=== PATIENT | female | born 1985 | race Caucasian/White ===

== ENCOUNTER 2016-11-27 17:47 | Emergency (ER) | payer BC, OTHER ==
[2016-11-27 19:28] VITALS: BP 107/64
--- NOTE | 2016-11-27 20:31 | UC ---
Back Pain HPI - HPI Summary HPI Summary: 2 weeks of worsening pain lateral to spine on left and right sides of back - History of Current Complaint Chief Complaint: UCBackPain Stated Complaint: BACK PAIN Time Seen by Provider: 11/27/16 20:08 Hx Obtained From: Patient Hx Last Menstrual Period: she does not get because of her cointrol ?: No Onset/Duration: Sudden Onset, Lasting Weeks - 2, Still Present Timing: Constant, Lasting Weeks - 2 Severity Initially: Moderate Severity Currently: Moderate Pain Intensity: 6 Pain Scale Used: 0-10 Numeric Back Pain: Is Discrete @ - lateral to spine bilaterally Character: Aching, Spasmodic, Stiffness Aggravating: Movement Alleviating: Rest Associated Signs And Symptoms: Positive: Negative - Allergies/Home Medications Allergies/Adverse Reactions: Allergies Allergy/AdvReac Type Severity Reaction Status Date / Time No Known Allergies Allergy Verified 11/27/16 19:25 Home Medications: Home Medications Bupropion XL* [Wellbutrin XL *] 150 mg PO DAILY 11/27/16 [History Confirmed ] Loratadine [Claritin 10 MG CAP] 10 mg PO DAILY 11/27/16 [History Confirmed 11/27] PMH/Surg Hx/FS Hx/Imm Hx Previously Healthy: No Cardiovascular History Of: Reports: Cardiac Disorders - PALPATATIONS - Surgical History Surgical History: Yes Surgery Procedure, Year, and Place: GALL BLADDER REMOVAL - Family History Known Family History: Positive: None Family History: no reported cardiovascular issues in family lineage - Social History Alcohol Use: None Substance Use Type: None Smoking Status (MU): Never Smoked Tobacco Review of Systems Constitutional: Negative Skin: Negative Eyes: Negative ENT: Negative Respiratory: Negative Cardiovascular: Negative Gastrointestinal: Negative Genitourinary: Negative Motor: Negative Neurovascular: Negative Musculoskeletal: Myalgia Neurological: Negative Psychological: Negative All Other Systems Reviewed And Are Negative: Yes Physical Exam Triage Information Reviewed: Yes Appearance: Well-Appearing, No Pain Distress, Well-Nourished Vital Signs: Initial Vital Signs Temp 98.8 F 11/27/16 19:22 Pulse 63 11/27/16 19:22 Resp 14 11/27/16 19:22 BP 107/64 11/27/16 19:22 Pulse Ox 100 11/27/16 19:22 Vital Signs Reviewed: Yes Eye Exam: Normal Eyes: Positive: Conjunctiva Clear ENT Exam: Normal ENT: Positive: Normal ENT inspection, Hearing grossly normal, TMs normal. Negative: Nasal congestion, Nasal drainage, Tonsillar swelling, Tonsillar exudate, Trismus, Muffled/hoarse voice Dental Exam: Normal Neck exam: Normal Neck: Positive: Supple, Nontender, No Lymphadenopathy Respiratory Exam: Normal Respiratory: Positive: Chest non-tender, Lungs clear, Normal breath sounds, No respiratory distress, No accessory muscle use Cardiovascular Exam: Normal Cardiovascular: Positive: RRR, No Murmur, Pulses Normal, Brisk Capillary Refill Musculoskeletal Exam: Normal Musculoskeletal: Positive: Strength Intact, ROM Intact, No Edema Neurological Exam: Normal Neurological: Positive: Alert, Muscle Tone Normal Psychological Exam: Normal Skin Exam: Normal Back Pain Course/Dx - Course Course Of Treatment: ibuprofen, flexeril, back and core strengthing exercise, follow with pcp - Differential Dx/Diagnosis Differential Diagnosis/HQI/PQRI: Strain, Sprain Provider Diagnoses: Muscle spasm--back pain Discharge - Discharge Plan Condition: Stable Disposition: HOME Prescriptions: Cyclobenzaprine TAB* [Flexeril 10 MG TAB*] 10 mg PO TID PRN #15 tab PRN Reason: muscle spasm Ibuprofen TAB* [Motrin TAB* 600 MG] 600 mg PO Q6H PRN #40 tab PRN Reason: Pain Patient Education Materials: Acute Low Back Pain (ED), Lower Back Exercises (ED ), Muscle Spasm (ED) Referrals: Jean Claude CARRION,Florecita Martins [Primary Care Provider] - 5 Days
== END 2016-11-27 20:37 | disposition home or self-care (01) ==
LOC: UCCORT 17:47
DX: M54.9 Dorsalgia, unspecified (principal); M62.830 Muscle spasm of back; Z90.49 Acquired absence of other specified parts of digestive tract
CPT/HCPCS: 99212; G0463

== ENCOUNTER 2016-12-17 18:24 | Emergency (ER) | payer OTHER ==
[2016-12-17 19:27] VITALS: BP 107/63
[2016-12-17] MEDS ORDERED: Amoxicillin/Clavulanate TAB* 875 MG PO ONE (19:58)
--- NOTE | 2016-12-17 20:02 | UC ---
Respiratory Complaint HPI - HPI Summary HPI Summary: Patient has had increased SOB, cough, sinus congestion and pressure over the past 8 days. - History of Current Complaint Chief Complaint: UCGeneralIllness Stated Complaint: SINUS CONGESTION HEADACHE COUGH Time Seen by Provider: 12/17/16 19:49 Hx Obtained From: Patient Hx Last Menstrual Period: doesn't get on OCP ?: No Onset/Duration: Sudden Onset, Lasting Weeks Timing: Constant Severity Initially: Mild Severity Currently: Moderate Character: Cough: Nonproductive Aggravating Factors: Exertion, Deep Breaths, Recumbent Position Alleviating Factors: Nothing Associated Signs And Symptoms: Positive: Wheezing, URI, Nasal Congestion, Hoarseness, Sinus Discomfort - Risk Factors Pulmonary Embolism Risk Factors: Negative Cardiac Risk Factors: Negative Pseudomonas Risk Factors: Negative Tuberculosis Risk Factors: Negative - Allergies/Home Medications Allergies/Adverse Reactions: Allergies Allergy/AdvReac Type Severity Reaction Status Date / Time No Known Allergies Allergy Verified 12/17/16 19:21 Home Medications: Home Medications ValACYclovir (*) [Valtrex 1 GM(*)] 1 gm PO BID 12/17/16 [History Confirmed 12/17] PMH/Surg Hx/FS Hx/Imm Hx Previously Healthy: Yes - Surgical History Surgical History: Yes Surgery Procedure, Year, and Place: GALL BLADDER REMOVAL - Family History Known Family History: Positive: None Family History: no reported cardiovascular issues in family lineage - Social History Alcohol Use: None Substance Use Type: None Smoking Status (MU): Never Smoked Tobacco Review of Systems Constitutional: Fever Skin: Negative Eyes: Negative ENT: Sore Throat, Ear Ache, Nasal Discharge Respiratory: Cough Cardiovascular: Negative Gastrointestinal: Negative Genitourinary: Negative Motor: Negative Musculoskeletal: Negative Neurological: Headache Psychological: Negative All Other Systems Reviewed And Are Negative: Yes Physical Exam Triage Information Reviewed: Yes Appearance: Well-Nourished, Ill-Appearing, Pain Distress Vital Signs: Initial Vital Signs Temp 98.8 F 12/17/16 19:23 Pulse 85 12/17/16 19:23 Resp 16 12/17/16 19:23 BP 107/63 12/17/16 19:23 Pulse Ox 100 12/17/16 19:23 Vital Signs Reviewed: Yes Eye Exam: Normal Eyes: Positive: Conjunctiva Clear ENT Exam: Normal ENT: Positive: Hearing grossly normal, Pharyngeal erythema, TMs normal, Tonsillar swelling Dental Exam: Normal Neck exam: Normal Neck: Positive: Supple, Nontender, No Lymphadenopathy Respiratory Exam: Normal Respiratory: Positive: Chest non-tender, No respiratory distress, No accessory muscle use, Wheezing, Inspiration Cardiovascular Exam: Normal Cardiovascular: Positive: RRR, No Murmur, Pulses Normal Abdominal Exam: Normal Abdomen Description: Positive: Nontender, No Organomegaly, Soft Bowel Sounds: Positive: Present Musculoskeletal Exam: Normal Musculoskeletal: Positive: Strength Intact, ROM Intact, No Edema Neurological Exam: Normal Neurological: Positive: Alert, Muscle Tone Normal Psychological Exam: Normal Skin Exam: Normal UC Diagnostic Evaluation - Laboratory O2 Sat by Pulse Oximetry: 100 Respiratory Course/Dx - Course Course Of Treatment: hx obtained, exam performed, meds reviewed, treated for sinusitis - Differential Dx/Diagnosis Differential Diagnosis/HQI/PQRI: Asthma, Bronchitis, CHF, Influenza, Laryngitis , Sinusitis Provider Diagnoses: sinusitis. bronchospasm Discharge - Discharge Plan Condition: Stable Disposition: HOME Patient Education Materials: Sinusitis (ED) Additional Instructions: 1. take the medication as prescribed. 2. increase fluid intake and get plenty of rest.
== END 2016-12-17 20:15 | disposition home or self-care (01) ==
LOC: UCCORT 18:24
DX: J32.9 Chronic sinusitis, unspecified (principal); J98.01 Acute bronchospasm
CPT/HCPCS: 99212; A9270-GY; G0463

== ENCOUNTER 2017-08-24 15:59 | Emergency (ER) | payer OTHER ==
--- OUTSIDE RECORDS SUMMARY | 2017-08-24 16:13 | XMS REPORT ---
:1985 External Reference #:[id number] Demographics Address [address] [place] [address] Home Phone [phone] Mobile Phone [phone] Work Phone [phone] Preferred Language Paraguayan Marital Status Not Or Scientologist Affiliation Unknown Race White Ethnic Group Not Or Author Organization [facility] Address [address] [place] [id number] Phone [phone] Care Team Providers Name Role Phone Florecita Silverio MD Primary Care Physician Unavailable Payers Type Date Identification Numbers Payment Provider Subscriber Commercial Effective: Policy Number: [employer] Of MELODY Hernandez 2013 [id number] Expires: 2015 PayID: [id number] [address] [address] [place] [address] Commercial Expires: 2016 Policy Number: [id number] [employer] Of MELODY Hernandez PayID: [id number] [address] [address] [place] [address] Medigap Part B Effective: Policy Number: [facility] Charlette Hernandez 2016 [id number] PayID: [id number] [address] [address] [place] [address] Problems Date Description Provider Status Onset: 02/25/2017 Vaginitis and vulvovaginitis Solange Luke RPA-Dinorah, MHP Active Onset: 03/31/2016 Primary dysmenorrhea Solange Luke RPA-C, MHP Active Onset: 09/05/2013 Increased frequency of urination Solange Luke RPA-C, MHP Active Onset: 06/25/2011 Leukorrhea Solange Luke RPA-C, MHP Active Onset: 06/25/2011 Dysuria Solagne Luke RPA-C, MHP Active Family History Date Family Member(s) Problem(s) Comments Father Healthy Father Hypercholesterolemia Father Obesity Mother Healthy Paternal Grandfather [place] Paternal Grandmother due to Cancer, Breast () - dx in 70's Paternal Grandmother due to Cancer, Lung () Maternal Grandfather due to Cancer () - Luekemia Maternal Grandfather Diabetes Maternal Grandmother due to Cancer () Maternal Grandmother Lymphoma Maternal Grandmother Melanoma Paternal Uncles due to Cancer, Lung () Social History Type Date Description Comments Marital Status Single Lives With Alone Diet Healthy, Well Balanced Sleep Reports normal sleep activity Smoke-Free Home is smoke-free Pets 1 dog 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 Cigarette Use Never Smoked Cigarettes ETOH Use Denies alcohol use Recreational Drug Use Denies Drug Use Smoking Patient has never smoked Daily Caffeine Does Not Consume Caffeine Tattoo/Piercing Tattoo none Tattoo/Piercing Pierced ears Seat Belt/Car Seat always uses seat belt Guns in Home No Smoke Alarms Yes Smoke Alarms Carbon Monoxide Detector: Yes Recent Travel There has been recent travel abroad DR Currently Active Patient is currently not sexually active Condom Use Always Contraceptive Methods Past methods include condoms Contraceptive Methods Past methods include depo-provera injection Contraceptive Methods Past methods include ring (Nuva) Contraceptive Methods Past methods include oral contraceptives Contraceptive Methods Current methods include oral contraceptives Age 1st [place] 19 Years Old # 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 Allergies, Adverse Reactions, Alerts Date Description Reaction Status Severity Comments 02/06/2011 NKDA active Medications Medication Date Status Form Strength Qnty SIG Indications Ordering Provider Probiotic 07/29/ Active Capsules 30caps 1 by mouth Joby, 2017 every day MD Goldie otc Claritin 03/31/ Active Capsules 10mg 90caps as needed Joby, 2015 for MD Goldie allergies- otc Super B 02/07/ Active Capsules Joby Complex/Dinorah 2014 MD Goldie Lo Loestrin Fe 02/06/ Active Tablets 1mg-10 mcg 84tabs take 1 N94.5 Joby 2010 / 10 mcg tablet by MD Goldie mouth every day same time of day Multivitamins / Active Capsules Unknown 0000 Wellbutrin / Active Unknown 0000 Doxycycline / Active Capsules 100mg TK 1 C PO Unknown Hyclate 0000 D Ondansetron HCL / Active Tablets 4mg TK 1 To 2 Unknown 0000 TS PO tid PRF Nausea Dapsone / Active Gel 5% Apply Pea Unknown 0000 Size Amount To Face qam Epiduo Forte / Active Gel 0.3-2.5% Apply Pea Unknown 0000 Size Amount To Face QHS Evening 02/07/ Hx Capsules 1300mg Hemphill, Round O Oil 2014 - MD Goldie 2015 Doxycycline 09/19/ Hx Tablets 100mg 1 PO bid Hemphill, Hyclate 2013 - for acne MD Goldie 2014 Flagyl 09/07/ Hx Tablets 500mg 14tabs 1 tab bid Joby, 2013 - times 7 MD Goldie 09/17/ 2013 Vitamin B 02/13/ Hx Capsules Jorge Alberto Roberson 2010 - Rosemary,M 08/05/ 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 Valtrex 02/13/ Hx Tablets 1gm 12tabs 2 tabs Karol 2010 - with first Suzie Riley 06/25/ symptoms 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 then repeat in 12 hours Ponstel 02/06/ Hx Capsules 250mg 2 po Karol 2010 - initially Rosemary,M 08/02/ then 1 tab S 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 2012 po q6- 8 hours prn dysmenorrh ea/menorrh agia Flagyl 02/06/ Hx Tablets 500mg 14tabs 1 tab bid Karol, 2010 - times 7 RosemarySuzie 06/25/ days 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 Vital Signs Date Vital Result Comment 07/29/2017 BP Systolic 110 mmHg BP Diastolic 68 mmHg Weight 166.00 lb Height 66 inches 5'6" BMI (Body Mass Index) 26.8 kg/m2 02/25/2017 BP Systolic 98 mmHg BP Diastolic 68 mmHg Weight 154.00 lb Height 66 inches 5'6" BMI (Body Mass Index) 24.9 kg/m2 03/31/2016 BP Systolic 110 mmHg BP Diastolic 62 mmHg Weight 174.00 lb Height 66 inches 5'6" BMI (Body Mass Index) 28.1 kg/m2 02/07/2015 BP Systolic 100 mmHg BP Diastolic 60 mmHg Weight 168.00 lb Height 66 inches 5'6" BMI (Body Mass Index) 27.1 kg/m2 09/19/2013 BP Systolic 120 mmHg BP Diastolic 78 mmHg Weight 158.00 lb Height 66 inches 5'6" BMI (Body Mass Index) 25.5 kg/m2 09/05/2013 BP Systolic 102 mmHg BP Diastolic 60 mmHg Weight 158.00 lb Height 66 inches 5'6" BMI (Body Mass Index) 25.5 kg/m2 08/02/2012 BP Systolic 106 mmHg BP Diastolic 64 mmHg Weight 159.00 lb Height 66 inches 5'6" BMI (Body Mass Index) 25.7 kg/m2 06/25/2011 BP Systolic 108 mmHg BP Diastolic 64 mmHg Weight 158.00 lb Respiratory Rate 14 /min 02/06/2011 BP Systolic 116 mmHg BP Diastolic 60 mmHg Weight 156.00 lb Height 66 inches 5'6" BMI (Body Mass Index) 25.2 kg/m2 Results Test Date Test Result H/L Range Note Laboratory test finding 02/25/2017 Urine Culture SPECIMEN DESCRI> 1 Vaginitis Direct Test SPECIMEN DESCRI> 2 Laboratory test 03/31/2016 Cytology Pap See Note 3 finding Laboratory test 09/19/2013 Urine Culture SPECIMEN DESCRIP 4 finding <SEE NOTE> HSV1/HSV2 Glyco G Igg 09/05/2013 HSV1 Glyco G Igg @ POSITIVE (Neg) 5, 6 HSV2 Glyco G Igg @ NEGATIVE (Neg) 5, 7 HSV 1/2 Igg/Igm W/RFX /2 09/05/2013 HSV1/2 Igg AB @ 3.64 INDEX High (0.00 -0.79) 5, 8 Glyco GSP Igg HSV1/2 Igm AB @ 1.29 INDEX High (0.00-0.89) 5, 9 STD Panel (Leonardo) 09/05/2013 Hepatitis B S Ag @ NEGATIVE (Neg) 5 Treponema Igg/Igm @ NEGATIVE (Neg) 5 HIV 1/2 AB @ NEGATIVE (Neg) 5, 10 Hepatitis C AB @ NEGATIVE (Neg) 5, 11 Laboratory test finding 09/05/2013 Urine Culture SPECIMEN DESCRIP 5, 12 <SEE NOTE> CT/GC Amplified 09/05/2013 C. Trachomatis NEGATIVE (Neg) 5, 13 N. Gonorrhoeae NEGATIVE (Neg) 5, 14 STD Panel In House Add On's 09/05/2013 HCG Negative mIU/ml Negative Affirm - In House 09/05/2013 Eloise Negative Negative Gardnarella Positive High Negative Trichmonas Negative Negative Laboratory test finding 08/02/2012 Cytology Pap See Note 15 Affirm - In House 06/25/2011 Eloise negative Gardnerella negative Trichomonas negative Laboratory test finding 06/25/2011 Urine Culture SPECIMEN DESCRIP 16 <SEE NOTE> STD Panel In House Add 02/06/2011 Beta HCG < 0.50 mIU/mL <5.00 17 On's Affirm - In House 02/06/2011 Eloise NEGATIVE Gardnerella POSITIVE High Trichomonas NEGATIVE STD Panel 02/06/2011 HIV 1/2 AB @ NEGATIVE (Neg) 18 Hepatitis B S Ag @ NEGATIVE (Neg) Hepatitis C AB @ NEGATIVE (Neg) 19 Treponema Igg/Igm @ NEGATIVE (Neg) HSV 1/2 Igg/Igm W/RFX 1/2 02/06/2011 HSV1/2 Igg AB @ 3.66 INDEX High (0.00 -0.89) 20 Glyco GSP Igg HSV1/2 Igm AB @ 0.53 INDEX (0.00-0.89) 21 CT/GC Amplified 02/06/2011 C. Trachomatis NEGATIVE (Neg) 22 N. Gonorrhoeae NEGATIVE (Neg) 23 HSV1/HSV2 Glyco G Igg 02/06/2011 HSV1 Glyco G Igg @ 5.53 INDEX High (0.00- 0.89) 24 HSV2 Glyco G Igg @ 0.68 INDEX (0.00-0.89) 25 1 SPECIMEN DESCRIPTION MIDSTREAM URINE,CLEAN CATCH CULTURE RESULTS MIXED UROGENITAL HEATHER; PLEASE SUBMIT A NEW SPEC IMEN IF CLINICALLY INDICATED. REPORT STATUS FINAL 02/26/2017 2 SPECIMEN DESCRIPTION VAGINAL/CERVICAL RESULT NEGATIVE FOR TRICHOMONAS VAGINALIS BY DNA PROBE NEGATIVE FOR GARDNERELLA VAGINALIS BY DNA PROBE NEGATIVE FOR ELOISE SPECIES BY DNA PROBE REPORT STATUS FINAL 02/25/2017 3 Interpretation: NEGATIVE FOR INTRAEPITHELIAL LESION OR MALIGNANCY. Specimen Adequacy: SATISFACTORY FOR EVALUATION. Additional Findings: ENDOCERVICAL/TRANSFORMATION ZONE PRESENT. This liquid-based ThinPrep Pap Test was screened with the use of the ThinPrep Imaging System and was reported using Satin System descriptive nomenclature. Cytology Laboratory [address], [address] [place] [address] CYTOLOGY REPORT Name: Charlette Hernandez : 1985 (Age: 31) Sex: F Location: [facility]. # [id number] Date Collected: 2015 Billing #: [id number] Date Received: 04/01/2016 Requisition # [id number] Physician(s): SOLANGE SANTOYO Source of Specimen: VAGINAL/ENDOCERVICAL/ECTOCERVICAL THIN PREP Clinical Information: Date of Last Menstrual Period: 12/2015 Hormonal History: OCPs kf Electronic Signature FILIPE Condon (ASCP) Reported: 04/04/2016 [facility] [employer] Laboratory [facility] Dx Code(s): Z12.4 4 SPECIMEN DESCRIPTION MIDSTREAM URINE,CLEAN CATCH CULTURE RESULTS <10,000 CFU/ML REPRESENTING URETHRAL HEATHER REPORT STATUS FINAL 09/21/2013 5 Pt has F/U on 09/19, will submit new urine specimen at that time. 6 PLEASE NOTE: Individuals infected with HSV may not exhibit detectable IgG antibody to glycoprotein G in the early stages of infection and 5-10% of infections may occur with glycoprotein G deficient virus. Detection of antibody presence in these cases may only be possible using a non-type specific screening test. NOTE: HSV serology cannot be interpreted in infants less than 60 days old. NEW QUALITATIVE METHOD IN USE 03/16/12 7 PLEASE NOTE: Individuals infected with HSV may not exhibit detectable IgG antibody to glycoprotein G in the early stages of infection and 5-10% of infections may occur with glycoprotein G deficient virus. Detection of antibody presence in these cases may only be possible using a non-type specific screening test. NOTE: HSV serology cannot be interpreted in infants less than 60 days old. NEW QUALITATIVE METHOD IN USE 03/16/12 8 INTERPRETATION OF RESULT < 0.80 NEGATIVE 0.80-0.99 EQUIVOCAL - repeat testing in 10-14 days may be helpful. > 0.99 POSITIVE - may indicate a current or previous HSV infection. NOTE: HSV serology cannot be interpreted in infants less than 60 days old. 9 INTERPRETATION OF RESULT < 0.90 NEGATIVE 0.90-1.09 EQUIVOCAL - repeat testing in 10-14 days may be helpful. > 1.09 POSITIVE - may indicate a current or recent HSV infection. NOTE: HSV serology cannot be interpreted in infants less than 60 days old. 10 THIS INFORMATION HAS BEEN DISCLOSED TO YOU FROM CONFIDENTIAL RECORDS WHICH ARE PROTECTED BY STATE LAW. STATE LAW PROHIBITS YOU FROM MAKING ANY FURTHER DISCLOSURE OF THIS INFORMATION WITHOUT THE SPECIFIC WRITTEN CONSENT OF THE PERSON TO WHOM IT PERTAINS, OR OTHERWISE PERMITTED BY LAW. 11 NOT INFECTED WITH HCV, UNLESS RECENT INFECTION IS SUSPECTED OR OTHER EVIDENCE EXISTS TO INDICATE HCV INFECTION. 12 SPECIMEN DESCRIPTION MIDSTREAM URINE,CLEAN CATCH CULTURE RESULTS MIXED UROGENITAL HEATHER; PLEASE SUBMIT A NEW SPEC IMEN IF CLINICALLY INDICATED. REPORT STATUS FINAL 09/06/2013 13 SOURCE - VAGINAL/CERVICAL BY AMPLIFIED DNA PROBE PERFORMED BY LABORATORY [facility] [address] [facility] [id number] 14 SOURCE - VAGINAL/CERVICAL BY AMPLIFIED DNA PROBE PERFORMED BY LABORATORY [address] [address] Cytology Laboratory [address] [place] [address], [address] [place] [address] CYTOLOGY REPORT Name: Charlette Hernandez : 1985 (Age: 27) Sex: F Location: [facility] # [id number] Date Collected: 2012 Billing #: [id number] Date Received: 08/03/2012 Requisition # [id number] Physician(s): SOLANGE SANTOYO Source of Specimen: ENDOCERVICAL/ECTOCERVICAL THIN PREP Clinical Information: Date of Last Menstrual Period: 07/30/12 Hormonal History: OCPs Specimen Adequacy: SATISFACTORY FOR EVALUATION. ADEQUATE ENDOCERVICAL/TRANSFORMATION ZONE. General Categorization: NEGATIVE FOR INTRAEPITHELIAL LESION OR MALIGNANCY. Descriptive Evaluation: SHIFT IN HEATHER SUGGESTIVE OF BACTERIAL VAGINOSIS. lgs Electronic Signature FILIPE Zavala (ASCP) Reported: 08/04/2012 Cytology [facility] ICD-9 Code(s) V72.31 A: 616.10 16 SPECIMEN DESCRIPTION MIDSTREAM URINE,CLEAN CATCH CULTURE RESULTS NO GROWTH REPORT STATUS FINAL 06/26/2011 17 INTERPRETATION: NEGATIVE 18 THIS INFORMATION HAS BEEN DISCLOSED TO YOU FROM CONFIDENTIAL RECORDS WHICH ARE PROTECTED BY STATE LAW. STATE LAW PROHIBITS YOU FROM MAKING ANY FURTHER DISCLOSURE OF THIS INFORMATION WITHOUT THE SPECIFIC WRITTEN CONSENT OF THE PERSON TO WHOM IT PERTAINS, OR OTHERWISE PERMITTED BY LAW. 19 NOT INFECTED WITH HCV, UNLESS RECENT INFECTION IS SUSPECTED OR OTHER EVIDENCE EXISTS TO INDICATE HCV INFECTION. 20 INTERPRETATION OF RESULT < 0.80 NEGATIVE 0.80-0.99 EQUIVOCAL - repeat testing in 10-14 days may be helpful. > 0.99 POSITIVE - may indicate a current or previous HSV infection. NOTE: HSV serology cannot be interpreted in infants less than 60 days old. 21 INTERPRETATION OF RESULT < 0.90 NEGATIVE 0.90-1.09 EQUIVOCAL - repeat testing in 10-14 days may be helpful. > 1.09 POSITIVE - may indicate a current or recent HSV infection. NOTE: HSV serology cannot be interpreted in infants less than 60 days old. 22 SOURCE - VAGINAL/CERVICAL BY AMPLIFIED DNA PROBE PERFORMED AT [address] [facility] [address] 23 SOURCE - VAGINAL/CERVICAL BY AMPLIFIED DNA PROBE PERFORMED AT [address] [facility] [address] 24 INTERPRETATION OF RESULT < 0.90 NEGATIVE 0.90-1.10 EQUIVOCAL - repeat testing in 4-12 weeks may be helpful. > 1.10 POSITIVE PLEASE NOTE: Individuals infected with HSV may not exhibit detectable IgG antibody to glycoprotein G in the early stages of infection and 5-10% of infections may occur with glycoprotein G deficient virus. Detection of antibody presence in these cases may only be possible using a non-type specific screening test. NOTE: HSV serology cannot be interpreted in infants less than 60 days old. 25 INTERPRETATION OF RESULT < 0.90 NEGATIVE 0.90-1.10 EQUIVOCAL - repeat testing in 4-12 weeks may be helpful. > 1.10 POSITIVE PLEASE NOTE: Individuals infected with HSV may not exhibit detectable IgG antibody to glycoprotein G in the early stages of infection and 5-10% of infections may occur with glycoprotein G deficient virus. Detection of antibody presence in these cases may only be possible using a non-type specific screening test. NOTE: HSV serology cannot be interpreted in infants less than 60 days old. Procedures Description No Information Encounters Type Date Location Provider CPT E/M Dx Office Visit 02/25/2017 2:15p [place] [facility] Solange Luke RPA-C, 24982 N76.2 MHP N89.8 Office Visit 03/31/2016 3:30p [facility] [facility] Solange Luke RPA-C, 91931 Z01.411 MHP N94.4 Office Visit 02/07/2015 1:30p [facility] Solange Luke RPA-C, 48947 V72.31 MHP V25.41 V25.01 Office Visit 09/19[facility]2013 [facility] RPA-C, 26863 V15.85 MHP 788.41 Office Visit 09/05/2013 11:30a [facility] Luke, SolangeSULEMAN maharaj, [address]187 V72.31 MHP 788.41 V15.85 788.1 V25.41 Office Visit 08/02/2012 3:15p [facility] Luke, SULEMAN Narvaez, [address] V76.2 MHP V72.31 V25.01 625.3 Office Visit 06/25/2011 10:00a [facility] Luke, SolangeSULEMAN maharaj, [address] 788.1 MHP 623.5 Office Visit 02/13/2011 3:15p [facility] Rosemary Roberson,MS DESKIDDING 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 [address]654 V15.85 V65.45 Office Visit 02/06/2011 9:30a [facility] Rosemary Roberson, DESKIDDING 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 [address]3775 V15.85 625.3 Plan of Care 02/25/2017 - Solange Luke RPA-C, MHPN76.2 Acute vulvitisComments:Vaginal Affirm obtained Await results for appropriate RxPt encouraged to let external genitalia be open to air when able. 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
--- OUTSIDE RECORDS SUMMARY | 2017-08-24 16:13 | XMS REPORT ---
:1985 External Reference #:[id number] Demographics Address [address] [place] [address] Home Phone [phone] Mobile Phone [phone] Work Phone [phone] Preferred Language Moldovan Marital Status Not Or Samaritan Affiliation Unknown Race White Ethnic Group Not Or Author Organization [facility] Address [address] [place] [id number] Phone [phone] Care Team Providers Name Role Phone Florecita Silverio MD Primary Care Physician Unavailable Payers Type Date Identification Numbers Payment Provider Subscriber Commercial Effective: Policy Number: BS Of MELODY Hernandez 2013 [id number] Expires: 2015 PayID: [id number] [address] [address] [place] [address] Commercial Expires: 2016 Policy Number: [id number] BS Of MELODY Hernandez PayID: [id number] [address] [address] [place] [address] Medigap Part B Effective: Policy Number: [facility] Charlette Hernandez 2016 [id number] PayID: [id number] [address] [address] [place] [address] Problems Date Description Provider Status Onset: 02/25/2017 Vaginitis and vulvovaginitis Solange Luke RPA-Dinorah, MHP Active Onset: 03/31/2016 Primary dysmenorrhea Solange Luke RPA-C, MHP Active Onset: 09/05/2013 Increased frequency of urination Solange Luke RPA-C, MHP Active Onset: 06/25/2011 Leukorrhea Solange Luke RPA-C, MHP Active Onset: 06/25/2011 Dysuria Solange Luke RPA-C, MHP Active Family History Date Family Member(s) Problem(s) Comments Father Healthy Father Hypercholesterolemia Father Obesity Mother Healthy Paternal Grandfather [place] Paternal Grandmother due to Cancer, Breast () [...] Pets 1 dog 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 Cigarette Use Never Smoked Cigarettes ETOH [...] Current methods include oral contraceptives Age [address] 19 Years Old # Partners in a [...] QHS Evening 02/07/ Hx Capsules 1300mg Hemphill, Adams Oil 2014 - MD Goldie 2015 Doxycycline 09/19/ Hx Tablets 100mg 1 PO bid Hemphill, Hyclate 2013 - for acne MD Goldie 2014 Flagyl 09/07/ Hx Tablets 500mg 14tabs 1 tab bid Joby, 2013 - times 7 MD Goldie 09/17/ 2013 Vitamin B 02/13/ Hx Capsules Jorge Alberto Roberson 2010 - Rosemary,M 08/05/ S SURVEY AND MAPPING TECHNICIAN 2013 Valtrex 02/13/ Hx Tablets 1gm 12tabs 2 tabs Karol 2010 - with first Suzie Riley 06/25/ symptoms S SURVEY AND MAPPING TECHNICIAN 2010 then repeat in 12 hours Ponstel 02/06/ Hx Capsules 250mg 2 po Karol 2010 - initially Rosemary,M 08/02/ then 1 tab S SURVEY AND MAPPING TECHNICIAN 2012 po q6- 8 hours prn dysmenorrh ea/menorrh agia Flagyl 02/06/ Hx Tablets 500mg 14tabs 1 tab bid Karol, 2010 - times 7 RosemarySuzie 06/25/ days S SURVEY AND MAPPING TECHNICIAN 2010 Vital Signs Date Vital Result Comment [...] ThinPrep Imaging System and was reported using [place] System descriptive nomenclature. Cytology Laboratory [address], [address] [place] [address] CYTOLOGY REPORT Name: Charlette Hernandez : 1985 (Age: 31) Sex: F Location: [facility]. # [id number] Date Collected: 2015 Billing #: [id number] Date Received: 04/01/2016 Requisition # [id number] Physician(s): SOLANGE SANTOYO Source of Specimen: VAGINAL/ENDOCERVICAL/ECTOCERVICAL THIN PREP Clinical Information: Date of Last Menstrual Period: 12/2015 Hormonal History: OCPs kf Electronic Signature FILIPE Condon (ASCP) Reported: 04/04/2016 [facility] Dx Code(s): Z12.4 4 SPECIMEN DESCRIPTION MIDSTREAM [...] AMPLIFIED DNA PROBE PERFORMED BY LABORATORY [facility] [address] [facility] [address] 14 SOURCE - VAGINAL/CERVICAL BY AMPLIFIED DNA PROBE PERFORMED BY LABORATORY [address] [address] Cytology Laboratory [address] [place] [address], [address] [place] [address] CYTOLOGY REPORT Name: Charlette Hernandez : 1985 (Age: 27) Sex: F Location: [facility] # [id number] Date Collected: 2012 Billing #: [id number] Date Received: 08/03/2012 Requisition # [id number] Physician(s): SOLANGE SANTOYO Source of Specimen: ENDOCERVICAL/ECTOCERVICAL THIN PREP Clinical Information: Date of Last Menstrual Period: 07/30/12 Hormonal History: OCPs Specimen Adequacy: SATISFACTORY FOR EVALUATION. ADEQUATE ENDOCERVICAL/TRANSFORMATION ZONE. General Categorization: NEGATIVE FOR INTRAEPITHELIAL LESION OR MALIGNANCY. Descriptive Evaluation: SHIFT IN HEATHER SUGGESTIVE OF BACTERIAL VAGINOSIS. lgs Electronic Signature FILIPE Zavala (ASCP) Reported: 08/04/2012 Cytology [facility] ICD-9 Code(s) V72.31 A: 616.10 16 SPECIMEN [...] BY AMPLIFIED DNA PROBE PERFORMED AT [address] [facility] [address] 23 SOURCE - VAGINAL/CERVICAL BY AMPLIFIED DNA PROBE PERFORMED AT [address] [facility] [address] 24 INTERPRETATION OF RESULT < 0.90 NEGATIVE [...] Location Provider CPT E/M Dx Office Visit 07/29/2017 2:15p [facility] Solange Luke, 875[address] Z01.419 RPA-C, P Z30.41 Office Visit 02/25/2017 2:15p [place] [facility] Solange Luke RPA-C, [address]7425 N76.2 P N89.8 Office Visit 03/31/2016 3:30p [place] [facility] Solange Luke RPA-C, [address]386 Z01.411 P N94.4 Office Visit 02/07/2015 1:30p [facility] Solange Luke RPA-C, 65463 V72.31 MHP V25.41 V25.01 Office Visit 09/19/2013 10:30a [facility] Solange Luke RPA-C, 78272 V15.85 MHP 788.41 Office Visit 09/05/2013 11:30a [facility] Solange Luke RPA-C, 21099 V72.31 MHP 788.41 V15.85 788.1 V25.41 Office Visit 08/02/2012 3:15p [facility] Solange Luke RPA-C, 04206 V76.2 MHP V72.31 V25.01 625.3 Office Visit 06/25/2011 10:00a [facility] Solange Luke RPA-C, 60635 788.1 MHP 623.5 Office Visit 02/13/2011 3:15p [facility] Rosemary Roberson,MS SURVEY AND MAPPING TECHNICIAN [address]6726 V15.85 V65.45 Office Visit 02/06/2011 9:30a [facility] Rosemary Roberson,MS SURVEY AND MAPPING TECHNICIAN 41374 V15.85 625.3 Plan of Care 07/29/2017 - Solange Luke RPA-C, MHPZ01.419 Encntr for operations administrative assistant exam (general) ( routine) w/o abn findingsComments:Monthly SBE reviewed and encouragedSafe sex practices, condom use reviewed.Pap deferred per guidelines.Follow up:1 year. for annual gynecological exam.Z30.41 Encounter for surveillance of contraceptive pillsComments:Loloestrin refilled x 12
[2017-08-24 19:00] VITALS: BP 111/76
--- NOTE | 2017-08-24 19:13 | UC ---
Throat Pain/Nasal Lorne HPI - HPI Summary HPI Summary: Pt presents to UC reporting 3 days of fever, chills, headache and neck pain. Pt states neck seems more stiff and has developed rash on left side of neck. Pt states she feels swollen behind her left ear and neck. mild nausea, no vomiting. Pt states took Motrin 2 days ago and ASA yesterday. no meds today, no cp, sob, abd pain no n/v + fevers + sick contacts - History of Current Complaint Chief Complaint: UCRespiratory Stated Complaint: NECK PAIN HEADACHE FEVER CHILLS Time Seen by Provider: 08/24/17 19:12 Hx Obtained From: Patient Hx Last Menstrual Period: unknown ?: No Onset/Duration: Gradual Onset Pain Intensity: 5 - Allergies/Home Medications Allergies/Adverse Reactions: Allergies Allergy/AdvReac Type Severity Reaction Status Date / Time No Known Allergies Allergy Verified 08/24/17 18:45 Home Medications: Home Medications Aspirin TAB* [Aspirin 325 MG TAB*] 650 mg PO BID PRN 08/24/17 [History Confirmed 08/24/17] DOXYcycline CAP(*) [DOXYcycline 100MG CAP(*)] 100 mg PO DAILY 08/24/17 [History Confirmed 08/24/17] Dapsone [Dapsone] 5 % EX DAILY 08/24/17 [History Confirmed 08/24/17] Epidou Topical For Acne 1 applic TOPICAL DAILY 08/24/17 [History Confirmed 08/24] Ibuprofen TAB* [Motrin TAB* 600 MG] 600 mg PO Q6H PRN 08/24/17 [History Confirmed 08/24/17] PMH/Surg Hx/FS Hx/Imm Hx Previously Healthy: Yes - Surgical History Surgical History: Yes Surgery Procedure, Year, and Place: GALL BLADDER REMOVAL; tonsils as child; rhinoplasty 2010 - Family History Known Family History: Positive: None Family History: no reported cardiovascular issues in family lineage - Social History Occupation: Employed Full-time Lives: Alone Alcohol Use: None Substance Use Type: None Smoking Status (MU): Never Smoked Tobacco Review of Systems Constitutional: Fever Skin: Rash ENT: Sinus Congestion All Other Systems Reviewed And Are Negative: Yes Physical Exam Triage Information Reviewed: Yes Appearance: Well-Nourished, Ill-Appearing Vital Signs: Initial Vital Signs Temp 100 F 08/24/17 18:51 Pulse 79 08/24/17 18:51 Resp 18 08/24/17 18:51 BP 111/76 08/24/17 18:51 Pulse Ox 100 08/24/17 18:51 Vital Signs Reviewed: Yes Eye Exam: Normal Eyes: Positive: Conjunctiva Clear ENT: Positive: Other - TM x 2 clear turbinates boggy + PND No erythema, no exudate mmmoist Dental Exam: Normal Neck: Positive: Tenderness @, Other: - + left submandibular mild LE Pt with discomfort lateral rotation of neck mild discomfort flex/ext Respiratory Exam: Normal Respiratory: Positive: Chest non-tender, Lungs clear, Normal breath sounds Cardiovascular Exam: Normal Cardiovascular: Positive: RRR, No Murmur, Pulses Normal Abdominal Exam: Normal Abdomen Description: Positive: Nontender, Soft Musculoskeletal: Positive: Strength Intact Neurological Exam: Normal Neurological: Positive: Alert Psychological Exam: Normal Psychological: Positive: Normal Response To Family Skin: Positive: Other - pt with patchy vesicular lesions scalp posterior left ear, left hair and one lesion on left ear lobe Throat Pain/Nasal Course/Dx - Course Course Of Treatment: Pt with fever, myalgia, disocmfort left lateral neck with disocomfort with movement Pt with new vesicular lesion on left side of head. I had long discussion with pt, father present in room, mother, RN on phone. suspicion rash = shingles. flu neg. pt reports stiffness in neck with ROM. Recommend pt to ED for futher eval - likely labs IV, and posisble further eval for meningitis. Pt in agreement with plan. [facility]. father to drive. APAP given in at - Differential Dx/Diagnosis Provider Diagnoses: fever, rash, neck pain Discharge - Discharge Plan Condition: Stable Disposition: HOME Patient Education Materials: Fever in Adults (ED), Acute Headache (ED) Referrals: Jean Claude CARRION,Florecita Martins [Primary Care Provider] - Additional Instructions: The doctor that evaluated you today in concerned regarding your headache, neck stiffness and rash. It is recommended you go directly to the emergency department at [facility] for additional testing and treatment. Please identify yourself when you get to the emergency department
[2017-08-24] MEDS ORDERED: Acetaminophen TAB* 325 MG PO ONE (19:21)
== END 2017-08-24 20:02 | disposition home or self-care (01) ==
LOC: UCCORT 15:59
DX: R50.9 Fever, unspecified (principal); R21 Rash and other nonspecific skin eruption; M54.2 Cervicalgia
CPT/HCPCS: 87502; 99212; A9270-GY; G0463

== ENCOUNTER 2017-08-24 20:59 | Emergency (ER) | payer OTHER ==
[2017-08-24] MEDS ORDERED: Ketorolac INJ* 30 MG/ML 1 ML VIAL IV PUSH ONE (22:35)
[2017-08-24] MEDS ORDERED: diPHENhydraMINE IV* 50 MG/ML 1 ml VIAL (BENADRYL) IV ONE (22:35)
[2017-08-24] MEDS ORDERED: Metoclopramide IV* 5 MG/ML 2 ML VIAL IV SLOW PU ONE (22:35)
[2017-08-24] MEDS ORDERED: NS 0.9% 1000 ML* 1,000 ML IV ONE (22:36)
[2017-08-24 23:18] LABS: ABS Basophils 0.1 10^3/ul (0-0.2); ABS Eosinophils 0.3 10^3/ul (0-0.6); ABS Lymphocytes 2.8 10^3/ul (1.0-4.8); ABS Monocytes 0.7 10^3/ul (0-0.8); ABS Neutrophils 5.1 10^3/ul (1.5-7.7); ABS Nucleated RBC 0 10^3/ul; Eosinophil % 3.1 % (0-6); Hematocrit 37 % (35-47); Hemoglobin 12.7 g/dl (12.0-16.0); Lymphocyte % 31.1 % (25-47); Mean Corpuscular HGB Conc 34 g/dl (31-36); Mean Corpuscular Hemoglobin 30 pg (27-31); Mean Corpuscular Volume 86 fL (80-97); Mean Platelet Volume 7 um3 (7.4-10.4); Nucleated Red Blood Cells % 0; Platelet Count 306 10^3/ul (150-450); Red Blood Count 4.27 10^6/ul (4.0-5.4); Red Cell Distribution Width 14 % (10.5-15)
[2017-08-25] MEDS ORDERED: ValACYclovir (*) 1 GM TAB PO ONE (01:00)
[2017-08-25] MEDS ORDERED: Ondansetron INJ* 2 MG/ML VIAL IV ONE (01:07)
--- NOTE | 2017-08-25 01:15 | ED ---
Ileana Moss Thomas, scribed for Eusebio Harrison MD on 08/24/17 at 2325 . Headache - HPI Summary HPI Summary: The patient is a 32 year old female referred from urgent care with a headache, fever, body aches, and a rash for the last three days. - History Of Current Complaint Chief Complaint: EDHeadache Stated Complaint: HEADACHE/FEVER/RASH Time Seen by Provider: 08/24/17 22:23 Hx Obtained From: Patient Hx Last Menstrual Period: unknown Onset/Duration: Started days ago - 3, Still Present Currently Pain Is: Moderate Timing: Constant Character: Unable To Describe Location of Headache: Diffuse Aggravating Factor: Nothing Allevating Factors: Nothing Associated Signs And Symptoms: Fever, Other (Noted In Comments) - Body aches, rash - Allergies/Home Medications Allergies/Adverse Reactions: Allergies Allergy/AdvReac Type Severity Reaction Status Date / Time No Known Allergies Allergy Verified 08/24/17 18:45 PMH/Surg Hx/FS Hx/Imm Hx Respiratory History: Reports: Hx Asthma - exercise induced Sensory History: Denies: Hx Legally Blind EENT History: Reports: Hx Deafness - Surgical History Surgery Procedure, Year, and Place: GALL BLADDER REMOVAL; tonsils as child; rhinoplasty 2010 Infectious Disease History: No Infectious Disease History: Denies: Hx Clostridium Difficile, Hx Hepatitis, Hx Human Immunodeficiency Virus (HIV), Hx of Known/Suspected MRSA, Hx Shingles, Hx Tuberculosis, Hx Known/ Suspected VRE, Hx Known/Suspected VRSA, History Other Infectious Disease, Traveled Outside the [place] in Last 30 Days - Family History Known Family History: Negative: Cardiac Disease - Social History Alcohol Use: None Substance Use Type: Reports: None Smoking Status (MU): Never Smoked Tobacco Review of Systems Positive: Fever Positive: Myalgia Positive: Rash Positive: Headache All Other Systems Reviewed And Are Negative: Yes Physical Exam - Summary Physical Exam Summary: VITAL SIGNS: Reviewed. GENERAL: Patient is a well-developed and nourished MALE who is lying comfortable in the stretcher. Patient is not in any acute respiratory distress. HEAD AND FACE: No signs of trauma. No ecchymosis, hematomas or skull depressions. No sinus tenderness. EYES: PERRLA, EOMI x 2, No injected conjunctiva, no nystagmus. EARS: Hearing grossly intact. Ear canals and tympanic membranes are within normal limits. MOUTH: Oropharynx within normal limits. NECK: Supple, trachea is midline, no adenopathy, no JVD, no carotid bruit, no c- spine tenderness, neck with full ROM. There is some maculovesicular rash on the left side of the neck. CHEST: Symmetric, no tenderness at palpation LUNGS: Clear to auscultation bilaterally. No wheezing or crackles. CVS: Regular rate and rhythm, S1 and S2 present, no murmurs or gallops appreciated. ABDOMEN: Soft, non-tender. No signs of distention. No rebound no guarding, and no masses palpated. Bowel sounds are normal. EXTREMITIES: FROM in all major joints, no edema, no cyanosis or clubbing. NEURO: Alert and oriented x 3. No acute neurological deficits. Speech is normal and follows commands. SKIN: There is some maculovesicular rash on the left side of the neck. Triage Information Reviewed: Yes Vital Signs On Initial Exam: Initial Vitals Temp Pulse Resp BP Pulse Ox 97.5 F 64 16 106/62 98 08/24/17 21:02 08/24/17 21:02 08/24/17 21:02 08/24/17 21:02 08/24/17 21:02 Vital Signs Reviewed: Yes Diagnostics - Vital Signs Vital Signs Temp Pulse Resp BP Pulse Ox 08/24/17 21:02 97.5 F 64 16 106/62 98 - Laboratory Lab Results: Lab Results 08/24/17 Range/Units 23:00 WBC 9.0 (3.5-10.8) 10^3/ul RBC 4.27 (4.0-5.4) 10^6/ul Hgb 12.7 (12.0-16.0) g/dl Hct 37 (35-47) % MCV 86 (80-97) fL MCH 30 (27-31) pg MCHC 34 (31-36) g/dl RDW 14 (10.5-15) % Plt Count 306 (150-450) 10^3/ul MPV 7 L (7.4-10.4) um3 Neut % (Auto) 57.1 (38-83) % Lymph % (Auto) 31.1 (25-47) % [place] % (Auto) 8.0 (1-9) % Eos % (Auto) 3.1 (0-6) % Baso % (Auto) 0.7 (0-2) % Absolute Neuts (auto) 5.1 (1.5-7.7) 10^3/ul Absolute Lymphs (auto) 2.8 (1.0-4.8) 10^3/ul Absolute Monos (auto) 0.7 (0-0.8) 10^3/ul Absolute Eos (auto) 0.3 (0-0.6) 10^3/ul Absolute Basos (auto) 0.1 (0-0.2) 10^3/ul Absolute Nucleated RBC 0 10^3/ul Nucleated RBC % 0 Result Diagrams: 08/24/17 23:00 08/24/17 23:00 Lab Statement: Any lab studies that have been ordered have been reviewed, and results considered in the medical decision making process. Re-Evaluation - Re-Evaluation First Eval Re-Evaluation Time: 00:40 Change: Improved Comment: The patient feels better. The rash on the left side of her neck does have a vesicular component, which may be shingles. I will treat her for shingles. Headache Course/Dx - Course Assessment/Plan: The patient is a 32 year old female referred from urgent care with a headache, fever, body aches, and a rash for the last three days. There is some maculovesicular rash on the left side of the neck. The patient was given Benadryl, Toradol, [place], and IV fluids. Bloodwork and urinalysis was obtained. On re-evaluation at 00:40, the patient feels better. The rash on the left side of her neck does have a vesicular component, which may be shingles. I will treat her for shingles. She will be discharged home with primary care follow up. - Diagnoses Provider Diagnoses: Shingles Discharge - Discharge Plan Condition: Stable Disposition: HOME Patient Education Materials: Shingles (ED) Referrals: Jean Claude CARRION,Florecita Martins [Primary Care Provider] - 3 Days Additional Instructions: Follow up with your primary care physician in three days. Return to the emergency department for any new or worsening symptoms. The documentation as recorded by the Ileana long Thomas accurately reflects the service I personally performed and the decisions made by me, Eusebio Harrison MD.
[2017-08-25 01:27] VITALS: BP 98/58
== END 2017-08-25 01:27 | disposition home or self-care (01) ==
LOC: ED 20:59
DX: B02.9 Zoster without complications (principal); J45.909 Unspecified asthma, uncomplicated
CPT/HCPCS: 36415; 80053; 83605; 84702; 85025; 86140; 87040; 96360; 96374; 96375; 99283; A9270-GY; J1200; J1885; J2405; J2765

== ENCOUNTER 2018-03-29 20:40 | Emergency (ER) | payer BC, OTHER ==
[2018-03-29 21:12] VITALS: BP 106/68
--- NOTE | 2018-03-29 21:40 | UC ---
Ear Complaint HPI - HPI Summary HPI Summary: Left ear has felt clogged for over a week. Over the past 3 days has developed some discomfort. No fever or other URI symptoms. No loss of hearing or drainage from the ear. - History of Current Complaint Chief Complaint: UCEar Stated Complaint: LEFT EAR CONCERN Time Seen by Provider: 03/29/18 21:25 Hx Obtained From: Patient Hx Last Menstrual Period: unknown Onset/Duration: Gradual Onset, Lasting Days, Still Present Severity Initially: Moderate Severity Currently: Moderate Pain Intensity: 4 Pain Scale Used: 0-10 Numeric Aggravating Factors: Nothing Alleviating Factors: Nothing Associated Signs/Symptoms: Negative: Discharge, Hearing Loss, Foreign Body Sensation, Trauma to Ear, Swelling @, URI Symptoms - Allergies/Home Medications Allergies/Adverse Reactions: Allergies Allergy/AdvReac Type Severity Reaction Status Date / Time No Known Allergies Allergy Verified 03/29/18 21:12 Home Medications: Home Medications ARIPiprazole TAB* [Abilify TAB*] 6 mg PO DAILY 03/29/18 [History Confirmed ] Cholecalciferol TAB* [Vitamin D TAB*] 1,000 unit PO DAILY 03/29/18 [History Confirmed 03/29/18] PMH/Surg Hx/FS Hx/Imm Hx Respiratory History: Asthma Psychological History: Depression - Surgical History Surgical History: Yes Surgery Procedure, Year, and Place: GALL BLADDER REMOVAL; tonsils as child; rhinoplasty 2010 - Family History Known Family History: Positive: None Negative: Cardiac Disease Family History: no reported cardiovascular issues in family lineage - Social History Alcohol Use: None Substance Use Type: None Smoking Status (MU): Never Smoked Tobacco Review of Systems Constitutional: Negative ENT: Ear Ache Respiratory: Negative Cardiovascular: Negative Gastrointestinal: Negative Neurological: Negative All Other Systems Reviewed And Are Negative: Yes Physical Exam Triage Information Reviewed: Yes Appearance: Well-Appearing, No Pain Distress, Well-Nourished Vital Signs: Initial Vital Signs Temp 98.3 F 03/29/18 21:06 Pulse 76 03/29/18 21:06 Resp 16 03/29/18 21:06 BP 106/68 03/29/18 21:06 Pulse Ox 100 03/29/18 21:06 Vital Signs Reviewed: Yes Eyes: Positive: Conjunctiva Clear ENT: Positive: Hearing grossly normal, Pharynx normal, TMs normal Neck: Positive: Supple, Nontender, No Lymphadenopathy Respiratory Exam: Normal Cardiovascular Exam: Normal Abdomen Description: Positive: Soft Musculoskeletal: Positive: No Edema Neurological: Positive: Alert Psychological: Positive: Age Appropriate Behavior Skin: Negative: rashes Ear Complaint Course/Dx - Differential Dx/Diagnosis Provider Diagnoses: RIGHT EAR PAIN Discharge - Sign-Out/Discharge Documenting (check all that apply): Patient Departure All imaging exams completed and their final reports reviewed: No Studies - Discharge Plan Condition: Stable Disposition: HOME Patient Education Materials: Earache (ED) Referrals: Jean Claude CARRION,Florecita Martins [Primary Care Provider] - If Needed Additional Instructions: NO SIGN OF INFECTION OR ABNORMALITY ON EXAM TODAY. TAKE OTC IBUPROFEN FOR DISCOMFORT. FOLLOW-UP WITH ENT FOR FURTHER EVALUATION. EAR PAIN, NON-SPECIFIC There are many causes of ear pain in adults. Pain that's felt in the ear can actually be coming from somewhere nearby. This is called "referred pain." Problems in the teeth, throat, or jaw joint (TMJ) often cause ear pain. Sometimes the physical exam or medical history suggests a treatable cause. If not, we may wait for the pain to go away. New symptoms may offer a clue to the cause of the pain. Report any changes to your care provider. These are some conditions that can cause ear pain, but may not be obvious from physical examination: Eardrum injury Pressure changes (barotrauma) due to swimming or shock waves Mild trauma such as Q-tip injury or finger-picking the outer ear Mild outer ear infection (swimmer's ear) Low-grade or chronic middle ear infection Mastoiditis (infection in the bone behind the ear) TMJ syndrome or arthritis of the jaw Pressure from hard earwax Tooth infection Infected tonsil Sinus infection Nerve disease such as Stoddard's Palsy Follow your care provider's treatment recommendations. Let the ear rest. Don't insert cotton swabs, dig at the ear with your finger, or force your ears to "pop." If you're not improving after a few days, or if new symptoms arise, see the doctor. Watch for: Decreased hearing Spreading pain or headache Drainage or bleeding from the ear Fever Weakness of the face muscles Other new symptoms [facility] SANDRA MARTIN AND [facility] [address] [facility] [phone] [facility] [place] DRS. FLORES AND MARINA [phone] [facility] [place] ([facility] OFFICE HOURS ON TUESDAYS) DR. HEATHER THOMAS Address: [address] [place] [address] (Tuesdays) Phone [place]: Phone [place]: - Billing Disposition and Condition Condition: STABLE Disposition: Home
== END 2018-03-29 21:50 | disposition home or self-care (01) ==
LOC: UCCORT 20:40
DX: H92.01 Otalgia, right ear (principal); J45.909 Unspecified asthma, uncomplicated; F32.9 Major depressive disorder, single episode, unspecified; Z79.899 Other long term (current) drug therapy
CPT/HCPCS: 99211; G0463

== ENCOUNTER 2018-11-14 08:46 | Emergency (ER) | payer BC, OTHER ==
[2018-11-14 09:08] VITALS: BP 93/62
[2018-11-14 09:30] LABS: Influenza A Molecular NEGATIVE (Negative); Influenza B Molecular NEGATIVE (Negative)
[2018-11-14] MEDS ORDERED: Ondansetron ODT TAB* 4 MG PO ONE (09:34)
--- NOTE | 2018-11-14 09:40 | ED ---
Headache - HPI Summary HPI Summary: 33 yr old with the complaint of frontal headache, neck stiffness, and pain in neck posteriorly since November 11. The patient has had some fever, chills. She denies sore throat. She states at most very mild nasal congestion. No coughing. She has no drooling, no stridor. She felt her glands were swollen in her neck. She state her BP is usually low like it is today. She does feel nauseated. - History Of Current Complaint Chief Complaint: UCGeneralIllness Stated Complaint: ST,ACHES Time Seen by Provider: 11/14/18 09:11 Hx Last Menstrual Period: no periods on BCP - Allergies/Home Medications Allergies/Adverse Reactions: Allergies Allergy/AdvReac Type Severity Reaction Status Date / Time No Known Allergies Allergy Verified 11/14/18 09:01 Home Medications: Home Medications Venlafaxine EXT RELEASE CAP* [Effexor Xr CAP*] 37.5 mg PO DAILY 11/14/18 [ History Confirmed 11/14/18] Vitamin B Complex [Super B-50 Complex] 1 each PO DAILY 11/14/18 [History Confirmed 11/14/18] PMH/Surg Hx/FS Hx/Imm Hx Respiratory History: Reports: Hx Asthma - exercise induced Sensory History: Reports: Hx Deafness Denies: Hx Legally Blind Opthamlomology History: Denies: Hx Legally Blind - Surgical History Surgery Procedure, Year, and Place: GALL BLADDER REMOVAL; tonsils as child; rhinoplasty 2010 Infectious Disease History: Yes Infectious Disease History: Reports: Hx Shingles Denies: Hx Clostridium Difficile, Hx Hepatitis, Hx Human Immunodeficiency Virus (HIV), Hx of Known/Suspected MRSA, Hx Tuberculosis, Hx Known/Suspected VRE , Hx Known/Suspected VRSA, History Other Infectious Disease, Traveled Outside the [place] in Last 30 Days - Family History Known Family History: Positive: None Negative: Cardiac Disease Family History: no reported cardiovascular issues in family lineage - Social History Occupation: Employed Full-time Alcohol Use: None Substance Use Type: Reports: None Smoking Status (MU): Never Smoked Tobacco Review of Systems Positive: Fever, Chills, Fatigue Positive: Other - neck stiffness Positive: Headache All Other Systems Reviewed And Are Negative: Yes Physical Exam Triage Information Reviewed: Yes Vital Signs On Initial Exam: Initial Vitals Temp Pulse Resp BP Pulse Ox 98.8 F 98 17 93/62 99 11/14/18 09:03 11/14/18 09:03 11/14/18 09:03 11/14/18 09:03 11/14/18 09:03 Vital Signs Reviewed: Yes Appearance: Positive: Well-Appearing, No Pain Distress Skin: Positive: Warm, Skin Color Reflects Adequate Perfusion Head/Face: Positive: Normal Head/Face Inspection Eyes: Positive: EOMI, RENNY ENT: Positive: Pharynx normal, TMs normal, Uvula midline. Negative: Muffled voice, Hoarse voice Neck: Positive: Nontender, No Lymphadenopathy Respiratory/Lung Sounds: Positive: Clear to Auscultation, Breath Sounds Present Cardiovascular: Positive: RRR. Negative: Murmur Abdomen Description: Negative: Distended Musculoskeletal: Positive: Strength/ROM Intact Neurological: Positive: Sensory/Motor Intact, Alert, Oriented to Person Place, Time, CN Intact II-III, Normal Gait, Speech Normal Psychiatric: Positive: Normal - [place] Coma Scale Best Eye Response: 4 - Spontaneous Best Motor Response: 6 - Obeys Commands Best Verbal Response: 5 - Oriented Coma Scale Total: 15 Diagnostics - Vital Signs Vital Signs Temp Pulse Resp BP Pulse Ox 11/14/18 09:03 98.8 F 98 17 93/62 99 - Laboratory Lab Results: Lab Results 11/14/18 11/14/18 Range/Units 09:15 09:19 Influenza A (Rapid) Negative (Negative) Influenza B (Rapid) Negative (Negative) Group A Strep Rapid Negative (Negative) Lab Statement: Any lab studies that have been ordered have been reviewed, and results considered in the medical decision making process. Headache Course/Dx - Course Course Of Treatment: 33 yr old with nausea, headache, and bilateral posterior neck ache, stiffness. She states her mom will drive her to the ER for further evaluation. - Diagnoses Provider Diagnoses: Headache, Neck stiffness Discharge - Sign-Out/Discharge Documenting (check all that apply): Patient Departure All imaging exams completed and their final reports reviewed: No Studies - Discharge Plan Condition: Good Disposition: HOME-RECOMMEND TO ED Patient Education Materials: Acute Headache (ED), Neck Pain (ED) Referrals: Jean Claude CARRION,Florecita Martins [Primary Care Provider] - Additional Instructions: You have been offered an ambulance, but state your mom is going to drive you to the ER. DO not delay going to the ER for further work up for your headache, nausea and neck pain - Billing Disposition and Condition Condition: GOOD Disposition: Home-Recommend to ED
== END 2018-11-14 09:47 | disposition home health service (06) ==
LOC: UCCORT 08:46
DX: M43.6 Torticollis (principal); R51 Headache; M54.2 Cervicalgia; J45.909 Unspecified asthma, uncomplicated
CPT/HCPCS: 87651; 99212; A9270-GY; G0463

== ENCOUNTER 2019-07-06 19:20 | Emergency (ER) | payer OTHER ==
--- OUTSIDE RECORDS SUMMARY | 2019-07-06 19:28 | XMS REPORT | Continuity of Care Document ---
:1985 External Reference #:[id number] Author Name Jennifer Dubon PA-C Address [address] [place] [address] Care Team Providers Name Role Phone Myles Arnold MD - Care Team Information Clerical Investigator [phone] Surgery Goldie Hemphill MD - Obstetrics & Care Team Information Clerical Investigator Gynecology [facility] - Sleep Disorder Care Team Information Clerical Investigator [phone] Diagnostic Problems Active Problems Provider Date Generalized anxiety disorder Florecita Silverio MD Onset: 04/04/2013 Depressive disorder Florecita Silverio MD Onset: 04/04/2013 Social History Type Date Description Comments Sex Unknown Tobacco Use Reviewed: 03/14/19 Never Smoked Cigarettes ETOH Use 07/23/2017 Never used alcohol Recreational Drug Use 07/23/2017 Never Used Drugs Tobacco Use Reviewed: 06/13/19 Patient has never smoked Smoking Status Reviewed: 06/13/19 Patient has never smoked Sun Exposure Uses sunscreen Seat Belt/Car Seat Always uses seat belt Guns in Home Yes, Locked Up Smoke Alarms Yes Smoke Alarms Carbon Monoxide Detector: No Allergies, Adverse Reactions, Alerts Description No Known Drug Allergies Medications Active Medications SIG Qnty Indications Ordering Provider Date Metformin HCL ER 1 by mouth with 60tabs R63.5 Florecita Silverio MD 06/13/2019 500mg dinner x 1 week Tablets ER 24HR then 2 by mouth with dinner every day Klonopin 1/2 every am and 60tabs Florecita Silverio MD 10/01/2017 0.5mg Tablets 1 by mouth at 5 pm Zofran 1-2 tabs by 30tabs R11.0 Carol Estes, 07/23/2017 4mg Tablets mouth three MD times a day as needed nausea Lo Loestrin Fe 1 by mouth every 1pack Carol Estes, 07/15/2017 1mg-10 day mcg / 10 mcg Tablets Dapsone apply twice a Carol Estes, 07/15/2017 5% Gel day MD Raciel Estes, 07/15/2017 0.3-2.5% MD Gel Bupropion HCL ER (XL) 1 by mouth every 30tabs Carol Estes, 2017 day MD 300mg Tablets ER 24HR Ventolin HFA 1-2 puffs every 8gm J45.998 Carol Estes, 06/08/2016 4-6 hours as 108(90Base) mcg/Act needed Aerosol Claritin 1 by mouth as 30caps Florecita Silverio MD 04/24/2016 10mg Capsules needed Multivital Unknown Tablets Abilify 1 by mouth every Unknown 5mg Tablets day Vitamin D 1 by mouth every Unknown (Cholecalciferol) day 400Unit Capsules Vitamin B Complex 1 by mouth every Unknown day Tablets [place] 3 1 by mouth once Unknown 1000mg Capsules daily Immunizations CPT Code Status Date Vaccine Lot # [id number] Given 04/27/2018 Flu, Multi-Dose Vial W/Preservative (Age 6Mo And [id number] Up)Quad 0.5 80346 Given 04/10/2013 Adacel - Tdap [id number] Given 04/04/2013 Flu Shot 3 Yrs And Above (Multi Dose Vial) [id number] Refused 04/24/2016 Flu, Multi-Dose Vial W/Preservative (Age 6Mo And Up )Quad 0.5 Vital Signs Date Vital Result Comment 06/13/2019 9:37am BP Systolic 118 mmHg BP Diastolic 68 mmHg Heart Rate 72 /min Body Temperature 98.3 F Respiratory Rate 20 /min Weight 176.25 lb Weight 79.947 kg Height 65.5 inches 5'5.50" BMI (Body Mass Index) 28.9 kg/m2 03/14/2019 11:52am BP Systolic 118 mmHg BP Diastolic 70 mmHg Heart Rate 76 /min Body Temperature 98.3 F Respiratory Rate 20 /min Weight 169.12 lb Weight 76.715 kg Height 65.5 inches 5'5.50" BMI (Body Mass Index) 27.7 kg/m2 Results Description No Information Available Procedures Date Code Description Status 01/06/2019 63398 X-Ray Toe(S) Two Views Completed Medical Devices Description No Information Available Encounters Type Date Location Provider Dx Diagnosis Office Visit 06/13/[address] Jennifer Dubon, R63.5 Abnormal weight 9:15a PA-C gain Office Visit 03/14/[address] Jennifer Lucason, R63.5 Abnormal weight 11:15a PA-C gain Office Visit 01/06/2019 [address] Veronica M79.671 Pain in right 3:15p JOHN Jerry foot Assessments Date Code Description Provider 06/13/2019 R63.5 Abnormal weight gain Jennifer Dubon PA-C 03/14/2019 R63.5 Abnormal weight gain Jennifer Dubon PA-C 01/06/2019 M79.671 Pain in right foot JOHN Cheema Plan of Treatment 06/13/2019 - ROBERT TillmanCR63.5 Abnormal weight gainNew Medication: Metformin HCL ER 500 mg - 1 by mouth with dinner x 1 week then 2 by mouth with dinner every dayComments:BMI 28.9. Continue not drinking your calories and work on going to gym more for exercise (even in hotels). Try to bring healthy snacks while travelling (carrot sticks, cheese sticks, etc.) May start Metformin 1 pill nightly with dinner and may increase to 2 pills after 1-2 weeks. Discussed common sideeffects including n/v/d and if this persists, to call office. Touch base in 1 month (call ok), sooner if needed. Functional Status Functional Condition Comment Date Status .None Active Mental Status Description No Information Available Referrals Description No Information Available
[2019-07-06 19:38] VITALS: BP 109/71
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
--- NOTE | 2019-07-07 19:35 | UC ---
- Progress Note Progress Note: Final radiologist reading of right knee x-ray from July 06, 2019 comes back as no fracture. Provider interpretation same date is the same therefore there is no discrepancy. Course/Dx - Diagnoses Provider Diagnoses: Contusion of right patella, Upper respiratory infection Discharge ED - Sign-Out/Discharge Documenting (check all that apply): Patient Departure All imaging exams completed and their final reports reviewed: Yes - Discharge Plan Condition: Good Disposition: HOME Patient Education Materials: Upper Respiratory Infection (DC), Knee Pain (ED) Referrals: Kev Stevenson MD [Medical Doctor] - 1 Day Jean Claude CARRION,Florecita Martins [Primary Care Provider] - Additional Instructions: Please call Dr Stevenson tomorrow morning for follow up of your knee injury. Your final xray read will be done tomorrow by our radiologist. - Billing Disposition and Condition Condition: GOOD Disposition: Home
== END 2019-07-06 20:20 | disposition home or self-care (01) ==
LOC: UCCORT 19:20
DX: S80.01XA Contusion of right knee, initial encounter (principal); J06.9 Acute upper respiratory infection, unspecified; J45.998 Other asthma; V19.9XXA Pedal cyclist (driver) (passenger) injured in unspecified traffic accident, initial encounter; Y92.9 Unspecified place or not applicable
CPT/HCPCS: 99211; G0463